=== PATIENT | female | born 1955 | race Caucasian/White ===

== ENCOUNTER 2021-07-02 15:56 | Inpatient (IN) | payer MEDICARE ==
[~2021-07-02 15:56] MED LIST: Iopamidol-370 76% 500 ML 1 ML ONE
[2021-07-02 16:39] LABS: #Basophils 0.1 thou/uL (0.0-0.2); #Eosinphils 0.5 thou/uL (0.0-0.7); #Lymphocytes 3.1 thou/uL (1.20-3.40); #Monocytes 0.6 thou/uL (0.11-0.59); #Neutrophils 5.7 thou/uL (1.40-6.50); %Eosinophils 4.7 % (0.0-10.0); %Lymphocytes 30.7 % (21.0-51.0); %Monocytes 5.8 % (0.0-10.0); %Neutrophils 57.8 % (42.0-75.0); Hemoglobin 14.2 g/dL (12.0-16.0); Mean Corpuscular HGB CONC 34.3 g/dL (32.0-36.0); Mean Corpuscular Hemoglobin 31.8 pg (27.0-31.0); Mean Corpuscular Volume 92.7 fL (78.0-98.0); Mean Platelet Volume 6.2 fL (7.4-10.4); Platelet Count 391 thou/uL (130-400); RBC Distribution Width 12.5 % (11.5-14.5); Red Blood Cell (RBC) Count 4.47 mill/uL (4.20-5.40); White Blood Cell (WBC) Count 9.9 thou/uL (4.8-10.8)
[2021-07-02 16:59] LABS: ALT (SGPT) 15 U/L (8-55); AST (SGOT) 16 U/L (5-34); Albumin 3.7 g/dL (3.4-4.8); Alkaline Phosphatase 110 U/L (40-110); Anion Gap 14 mmol/L (10-20); BUN (Urea Nitrogen) 21 mg/dL (9.8-20.1); Bilirubin, Total 0.5 mg/dL (0.2-1.2); Calc. Creatinine Clearance 0 mL/min (70-130); Calcium 9.8 mg/dL (7.8-10.44); Carbon Dioxide 25 mmol/L (23-31); Chloride 106 mmol/L (98-107); Globulin 3.2 g/dL (2.4-3.5); Glucose 199 mg/dL (80-115); Potassium 3.8 mmol/L (3.5-5.1); Protein, Total 6.9 g/dL (5.8-8.1); Sodium 141 mmol/L (136-145)
[2021-07-02] MEDS ORDERED: Aspirin Chewable 81 MG TAB ONE (17:46)
[2021-07-02] MEDS ORDERED: Ondansetron ODT 4 MG TAB PO PRN (18:55)
[2021-07-02] MEDS ORDERED: Acetaminophen 325 MG TAB PO PRN (18:55)
[2021-07-02] MEDS ORDERED: hydrALAZINE 20 MG/ML VIAL SLOW IVP PRN (18:55)
[2021-07-02] MEDS ORDERED: Ondansetron PF 4 MG/2 ML Vial IVP PRN (18:55)
[2021-07-02] MEDS ORDERED: HumaLOG 300 UNITS/3 ML VIAL SC PRN (18:59)
[2021-07-02] MEDS ORDERED: Dextrose 5% in Water 1,000 ML IV PRN (18:59)
[2021-07-02] MEDS ORDERED: Dextrose 50% Abboject 50 ML SYRINGE SLOW IVP PRN (18:59)
[2021-07-02] MEDS ORDERED: Clopidogrel Bisulfate 300 MG TAB PO SCH (21:00)
[2021-07-02] MEDS: Atorvastatin Calcium 40 MG TAB PO SCH (21:21)
[2021-07-02] MEDS: Lantus 1000 UNITS/10 ML VIAL SC SCH (21:22)
[2021-07-02 21:25] LABS: Hemoglobin A1c 6.9 % (4.0-6.0)
[2021-07-02 23:22] VITALS: BMI 51.5
[2021-07-03 05:34] LABS: Cardiac Risk 5.5 (Less than 4.5)
[2021-07-03] MEDS: Lantus 1000 UNITS/10 ML VIAL SC SCH ×2 (09:08→21:51)
[2021-07-03] MEDS: Enoxaparin Sodium 40 MG/0.4 ML SYRINGE SC SCH (09:08)
[2021-07-03] MEDS: Aspirin 81 mg Enteric Coated Tablet PO SCH (09:08)
[2021-07-03] MEDS: Clopidogrel Bisulfate 75 MG TAB PO SCH (09:08)
[2021-07-03] MEDS: HumaLOG 300 UNITS/3 ML VIAL SC PRN ×2 (11:25→17:30)
[2021-07-03] MEDS ORDERED: hydrALAZINE 20 MG/ML VIAL SLOW IVP PRN (12:52)
[2021-07-03 13:35] LABS: SARS-CoV-2 PCR by NAA Not Detected (NotDetected)
[2021-07-03] MEDS: Atorvastatin Calcium 40 MG TAB PO SCH (21:51)
[2021-07-04] MEDS: Enoxaparin Sodium 40 MG/0.4 ML SYRINGE SC SCH (08:57)
[2021-07-04] MEDS: Empagliflozin 10 MG TAB PO SCH (08:57)
[2021-07-04] MEDS: metFORMIN 500 MG TAB PO SCH (08:57)
[2021-07-04] MEDS: Clopidogrel Bisulfate 75 MG TAB PO SCH (08:57)
[2021-07-04] MEDS: Aspirin 81 mg Enteric Coated Tablet PO SCH (08:57)
[2021-07-04] MEDS: Lisinopril 5 MG TAB PO SCH (08:57)
[2021-07-04] MEDS: Lantus 1000 UNITS/10 ML VIAL SC SCH ×2 (08:59→21:14)
[2021-07-04] MEDS: HumaLOG 300 UNITS/3 ML VIAL SC PRN (16:58)
[2021-07-04] MEDS: Atorvastatin Calcium 40 MG TAB PO SCH (21:12)
[2021-07-05 05:16] LABS: Platelet Count 345 thou/uL (130-400)
[2021-07-05 05:35] LABS: Anion Gap 13 mmol/L (10-20); BUN (Urea Nitrogen) 16 mg/dL (9.8-20.1); Calc. Creatinine Clearance 143 mL/min (70-130); Calcium 9.5 mg/dL (7.8-10.44); Carbon Dioxide 22 mmol/L (23-31); Chloride 107 mmol/L (98-107); Glucose 153 mg/dL (80-115); Potassium 3.9 mmol/L (3.5-5.1); Sodium 138 mmol/L (136-145)
[2021-07-05] MEDS: metFORMIN 500 MG TAB PO SCH (08:54)
[2021-07-05] MEDS: Lisinopril 5 MG TAB PO SCH (08:54)
[2021-07-05] MEDS: Aspirin 81 mg Enteric Coated Tablet PO SCH (08:55)
[2021-07-05] MEDS: Lantus 1000 UNITS/10 ML VIAL SC SCH (08:55)
[2021-07-05] MEDS: Enoxaparin Sodium 40 MG/0.4 ML SYRINGE SC SCH (08:55)
[2021-07-05] MEDS: Clopidogrel Bisulfate 75 MG TAB PO SCH (08:55)
[2021-07-05] MEDS: Empagliflozin 10 MG TAB PO SCH (08:55)
[2021-07-05] MEDS ORDERED: FLU VACC QS2021-22(65YR UP)/PF 240 MCG/0.7 ML SYRINGE IM ONE (09:00)
[2021-07-05] MEDS: HumaLOG 300 UNITS/3 ML VIAL SC PRN (11:23)
[2021-07-05 19:51] VITALS: BP 131/63; TEMP 97.9
[2021-07-05] MEDS ORDERED: Lantus 1000 UNITS/10 ML VIAL SC SCH (21:00)
[2021-07-06] MEDS ORDERED: metFORMIN XR 500 MG TAB PO SCH (08:00)
[2021-07-06] MEDS ORDERED: Lantus 1000 UNITS/10 ML VIAL SC SCH (09:00)
== END 2021-07-05 19:35 | DRG 65 ==
LOC: ERS 15:56 → EDSEX 15:56 → 2NO 18:25 → OBSVTOIN 07-03 15:07
PROVIDERS: ADMIT Student in an Organized Health Care Education/Training Program; ATTEND Student in an Organized Health Care Education/Training Program
DX: I63.89 Other cerebral infarction (principal); G81.94 Hemiplegia, unspecified affecting left nondominant side; Z20.822 Contact with and (suspected) exposure to COVID-19; E11.319 Type 2 diabetes mellitus with unspecified diabetic retinopathy without macular edema; I10 Essential (primary) hypertension; G47.33 Obstructive sleep apnea (adult) (pediatric); R29.810 Facial weakness; R29.703 NIHSS score 3; R47.1 Dysarthria and anarthria; R47.81 Slurred speech; R13.12 Dysphagia, oropharyngeal phase; Z88.8 Allergy status to other drugs, medicaments and biological substances; Z79.4 Long term (current) use of insulin; Z79.899 Other long term (current) drug therapy
CPT/HCPCS: 36415; 36416; 70450; 70496; 70498; 70551; 71045; 74230; 80048; 80053; 80061; 83036; 84443; 84484; 85014; 85018; 85025; 85049; 93005; 93306; 96372; G0378; J0360; J1650; J1815; Q9967; U0003; U0005

== ENCOUNTER 2021-08-02 10:46 | Outpatient (CLI) | payer MEDICARE | END 2021-08-02 10:47 | disposition home or self-care (01) | LOC: BICRAD 10:46 | PROVIDERS: ATTEND Student in an Organized Health Care Education/Training Program | DX: M54.50 Low back pain, unspecified (principal); G89.29 Other chronic pain; M47.816 Spondylosis without myelopathy or radiculopathy, lumbar region | CPT/HCPCS: 72100 ==

== ENCOUNTER 2021-11-02 13:22 | Outpatient (CLI) | payer MEDICARE | END 2021-11-02 13:23 | disposition home or self-care (01) | LOC: ULT 13:22 | PROVIDERS: ATTEND Podiatrist Foot & Ankle Surgery | DX: R60.0 Localized edema (principal); E11.9 Type 2 diabetes mellitus without complications | CPT/HCPCS: 93922 ==